=== PATIENT | male | born 1960 | race Caucasian/White ===

== ENCOUNTER 2016-04-10 10:02 | Emergency (ER) | payer OTHER ==
[2016-04-10 10:11] VITALS: BP 135/94; PULSE 80; TEMP 98; BMI 29.3
--- NOTE | 2016-04-10 10:53 | PDOC ---
History of Present Illness - General Chief Complaint: Pain Stated Complaint: RT SHOULDER PAIN Time Seen by Provider: 04/10/16 10:31 History Source: Patient Exam Limitations: No Limitations - History of Present Illness Initial Comments: 04/10/16 10:50 Patient states slipped on wet marble stairs yesterday falling backwards landing on his right shoulder/scapula. Bliss was badly bruised last night but woke up this morning with worsening pain and immobility. Denies breathing problems, denies any right arm involvement although mobility is limited secondary to pain at his shoulder. No head injury, no Other injury injured Occurred: reports: yesterday Severity: reports: moderate Pain Location: reports: back Method of Injury: Yes: fall Associated Symptoms (Fall): denies symptoms Past History - Travel Traveled outside of the country in the last 30 days: No Close contact w/someone who was outside of country & ill: No - Past Medical History Allergies/Adverse Reactions: Allergies Allergy/AdvReac Type Severity Reaction Status Date / Time ibuprofen [From Motrin] AdvReac Mild papular Verified 04/10/16 11:35 rash to forehead acetaminophen [From Vicodin] AdvReac Verified 04/10/16 11:35 hydrocodone bitartrate AdvReac Verified 04/10/16 11:35 [From Vicodin] Home Medications: Ambulatory Orders Oxycodone HCl/Acetaminophen [Percocet 5-325 mg Tablet -] 1 - 2 tab PO Q4H PRN # 15 tablet MDD 4 04/10/16 - Psycho/Social/Smoking Cessation Hx Suicidal Ideation: No Smoking History: Current every day smoker Number of Cigarettes Smoked Daily: 10 Information on smoking cessation initiated: No Review of Systems - Review of Systems Able to Perform ROS?: Yes Is the patient limited [place]an proficient: Yes Constitutional: Yes: See HPI. No: Symptoms Reported HEENTM: No: Symptoms Reported Respiratory: No: Symptoms reported Musculoskeletal: Yes: Symptoms Reported, See HPI, Back Pain, Joint Swelling ( right shoulder), Joint Stiffness All Other Systems: Reviewed and Negative *Physical Exam - Vital Signs Last Vital Signs Temp Pulse Resp BP Pulse Ox 98 F 80 18 135/94 97 04/10/16 10:07 04/10/16 10:07 04/10/16 10:07 04/10/16 10:07 04/10/16 10:07 - Physical Exam General Appearance: Yes: Nourished, Appropriately Dressed, Apparent Distress, Moderate Distress HEENT: positive: LINN, Normal ENT Inspection, TMs Normal, Pharynx Normal Neck: positive: Supple. negative: Tender Respiratory/Chest: positive: Lungs Clear, Normal Breath Sounds Musculoskeletal: positive: Decreased Range of Motion (limited range of motion and able to abduct and forward flex approximately 20-30, has strong flexion and extension of bicep and tricep muscles, no upper arm tenderness, no true shoulder girdle tenderness but range of motion limited secondary to scapular pain. No crepitus or step-offs, but right scapular base is swollen). negative: Normal Inspection, Vertebral Tenderness Extremity: positive: Normal Capillary Refill, Normal Inspection Integumentary: positive: Normal Color. negative: Ecchymosis Neurologic: positive: manager fraud II-XII NML intact, Fully Oriented, Alert, Normal Mood/ Affect ED Treatment Course - RADIOLOGY Radiology Studies Ordered: Category Date Time Status SCAPULA [RAD] Stat Radiology 04/10/16 10:42 Ordered SHOULDER-RIGHT [RAD] Stat Radiology 04/10/16 10:42 Ordered Progress Note - Progress Note Progress Note: Scapular fracture, discussed case with Dr. Mercado who states will treat conservatively until reevaluated in their office. Sling provided, and will prescribe #15 Percocet *DC/Admit/Observation/Transfer Diagnosis at time of Disposition: Scapular fracture Qualifiers: Encounter type: initial encounter Scapula location: body Fracture type: closed Fracture alignment: nondisplaced Laterality: right Qualified Code(s): S42.114A - Nondisplaced fracture of body of scapula, right shoulder, initial encounter for closed fracture - Discharge Dispostion Disposition: HOME Condition at time of disposition: Stable Admit: No - Referrals Referrals: Liliana Terry MD [Primary Care Provider] - Jacob Mercado MD [Staff Physician] - - Patient Instructions Printed Discharge Instructions: How to Use a Sling, DI for Shoulder Fracture Additional Instructions: Rest, ice to area on and off for 15 minutes 4-6 times a day Avoid heavy lifting or exercise until pain and swelling is resolved or until further directed Keep area highly elevated to reduce swelling Use splints/Ye wrap as directed Followup with orthopedist in one to 2 days , call for appointment if significantly improved may wait one week for followup with orthopedist May use ibuprofen 2-200 mg tablets every 6 hours as needed for pain May use one or 2 tablets of Percocet for severe pain - Post Discharge Activity Work/School Note: Back to Work
[2016-04-10] MEDS ORDERED: OXYCODONE/APAP 5/325MG COMBO TABLET ONE (11:25)
== END 2016-04-10 12:19 | disposition home or self-care (01) ==
LOC: JERFT 10:02
DX: S42.114A Nondisplaced fracture of body of scapula, right shoulder, initial encounter for closed fracture (principal); W01.0XXA Fall on same level from slipping, tripping and stumbling without subsequent striking against object, initial encounter; W10.8XXA Fall (on) (from) other stairs and steps, initial encounter; Y93.89 Activity, other specified; Y92.89 Other specified places as the place of occurrence of the external cause; Y99.8 Other external cause status
CPT/HCPCS: 73030-TC-RT; 99281-25

== ENCOUNTER 2016-04-20 08:07 | Emergency (ER) | payer OTHER ==
[2016-04-20 08:17] VITALS: BP 122/82; PULSE 94; TEMP 97.6; BMI 28.8
[2016-04-20] MEDS ORDERED: OXYCODONE/APAP 5/325MG COMBO TABLET ONE (08:50)
[2016-04-20] MEDS ORDERED: OXYCODONE/APAP 5/325MG COMBO TABLET PO ONE (08:50)
--- NOTE | 2016-04-20 08:55 | PDOC ---
History of Present Illness - General Chief Complaint: RX Refill Stated Complaint: CRACKED RT SCAPULA (REVISIT) Time Seen by Provider: 04/20/16 08:18 History Source: Patient - History of Present Illness Occurred: reports: other Upper Extremity Pain Location: right: shoulder Method of Injury: reports: fell Past History - Past Medical History Allergies/Adverse Reactions: Allergies Allergy/AdvReac Type Severity Reaction Status Date / Time tramadol HCl [From Ultram] Allergy Rash Verified 04/20/16 08:18 ibuprofen [From Motrin] AdvReac Mild papular Verified 04/10/16 11:35 rash to forehead acetaminophen [From Vicodin] AdvReac Verified 04/20/16 08:17 hydrocodone bitartrate AdvReac Verified 04/20/16 08:17 [From Vicodin] Home Medications: Ambulatory Orders Oxycodone HCl/Acetaminophen [Percocet 5-325 mg Tablet -] 1 - 2 tab PO Q4H PRN # 15 tablet MDD 4 04/10/16 - Psycho/Social/Smoking Cessation Hx Suicidal Ideation: No Smoking History: Current every day smoker Number of Cigarettes Smoked Daily: 10 Information on smoking cessation initiated: No Hx Alcohol Use: Yes (SOCIAL) Drug/Substance Use Hx: No Substance Use Type: None Review of Systems - Review of Systems Musculoskeletal: Yes: Joint Pain *Physical Exam - Vital Signs Last Vital Signs Temp Pulse Resp BP Pulse Ox 97.6 F 94 H 20 122/82 98 04/20/16 08:13 04/20/16 08:13 04/20/16 08:13 04/20/16 08:13 04/20/16 08:13 - Physical Exam General Appearance: Yes: Appropriately Dressed. No: Apparent Distress HEENT: positive: Normal Voice Respiratory/Chest: negative: Respiratory Distress Extremity: positive: Other (sling in place to RUE) Integumentary: positive: Dry, Warm Neurologic: positive: Fully Oriented, Alert, Normal Mood/Affect Medical Decision Making - Medical Decision Making 04/20/16 08:50 56-year-old male seen in ED approximately 10 days ago for right upper extremity injury and diagnosed with scapular fracture on x-ray and given sling and orthopedic follow-up. Patient now returns for additional pain control. When patient was initially seen in ED, was given 15 Percocet tablets and states he saw Ortho several days later and was given another 30 tablets. States pain continues and here for narcotic refills. States he is allergic to motrin and tylenol. Patient well-appearing and stable in ED. I explained pt that we will give him a dose of pain meds here but that he will need to follow up with orthopedics for further pain management. Pt discharged in stable conditions. 04/20/16 09:02 *DC/Admit/Observation/Transfer Diagnosis at time of Disposition: Shoulder pain Qualifiers: Laterality: right Chronicity: acute Qualified Code(s): M25.511 - Pain in right shoulder - Discharge Dispostion Disposition: HOME Condition at time of disposition: Good - Referrals Referrals: Kristopher Garcia MD [Primary Care Provider] - - Patient Instructions Additional Instructions: Please follow up with orthopedics
== END 2016-04-20 09:31 | disposition home or self-care (01) ==
LOC: JERFT 08:07
DX: S42.191D Fracture of other part of scapula, right shoulder, subsequent encounter for fracture with routine healing (principal); W01.0XXD Fall on same level from slipping, tripping and stumbling without subsequent striking against object, subsequent encounter
CPT/HCPCS: 99281-25